=== PATIENT | female | born 1970 | race Caucasian/White ===

== ENCOUNTER → 2016-08-16 | Outpatient (CLI) | payer OTHER ==
[~2016-08-16] MED LIST: BENTYL10 MG PO; CALCIUM1 TAB.CHEW; EFFEXOR37.5 MG PO; FOLIC ACID; LEVBID PO; LORAZEPAM0.5 MG PO; MULTI-DAY VITAM1 TAB PO; PRENATAL1 TA1; VITAMIN B-1000 MCG/1 IJ
--- NOTE | ~2016-08-16 | MR104 ---
[facility] A Service of [facility] & [facility] RADIOLOGY TEXT RESULTS PATIENT: SADAF CORTEZ LOCATION: [facility] : 70 UNIT #: [id number] AGE: [address]: Bernabe Wong MD SEX: F ORDER DR: [id number] [facility] [address] [facility] [address] [place], [place] [address] [id number] O MR#: [id number] Acc #: [id number] NAME: SADAF CORTEZ : 1970 SEX: F STUDY DATE/TIME: 08/16/2016 18:26 UNIT: [facility] ROOM: STUDY DESCRIPTION: MR Knee Wo Contrast Rt Attending Physician: Bernabe Wong M.D. Ordering Physician: Bernabe Wong M.D. Primary Care Physician: Bernabe Wong M.D. MRI CENTER REPORT This report is preliminary unless electronic signature is present. EXAM MRI of the right knee without contrast HISTORY 46-year-old female complains of right medial knee pain x4 months. No known injury. Pain walking on stairs. Knee gives out. COMPARISON Right knee films 07/09/2016. FINDINGS Multiplanar, multiecho imaging was performed of the right knee utilizing a high field magnet and dedicated protocol. Examination demonstrates a small amount of subchondral edema along the medial tibial plateau corresponding to a 8 mm focus of moderate grade chondromalacia. There is increased T2 marrow signal within the distal femur most likely representing red marrow hyperplasia may be related to body habitus. There is a small knee effusion. The medial meniscus demonstrates diffuse myxoid degeneration but no defined tear. Lateral meniscus demonstrates a horizontal cleavage tear involving the posterior body segment posterior horn medial meniscus. Tear estimated over a cm in length. No displaced meniscal fragment. Lateral compartment articular cartilage appears intact. In the patellofemoral compartment, mild chondromalacia median ridge and lateral patellar facet. Anterior and posterior cruciate ligaments appear intact. The collateral ligaments and extensor mechanism unremarkable. Extraarticular soft tissues appear normal. IMPRESSION 1. Multifocal chondromalacia with moderate-grade chondromalacia involving the anterior weightbearing aspect medial tibial plateau with a small amount of subchondral edema as well as mild chondromalacia along the STS. [facility] A Service of [facility] & [facility] RADIOLOGY TEXT RESULTS PATIENT: SADAF CORTEZ LOCATION: [facility] : 70 UNIT #: [id number] AGE: [address]: Bernabe Wong MD SEX: F ORDER DR: median ridge and lateral patellar facet of the patella. 2. Myxoid degeneration of the lateral meniscus with a horizontal cleavage tear posterior body segment and posterior horn lateral meniscus. 3. Small knee effusion. Dictated by... Santino Vanegas M.D. THIS IS AN ELECTRONICALLY VERIFIED REPORT Santino Vanegas M.D. at 08/18/2016 1:58 PM ANITA/gabo TD: 08/17/2016 14:13 JOB #: [id number] MRI CENTER REPORT Page 1 of 1 COPY
== END | disposition home or self-care (01) ==
LOC: CMRI 17:22
DX: M25.561 Pain in right knee (principal); M94.261 Chondromalacia, right knee; M25.461 Effusion, right knee; M23.351 Other meniscus derangements, posterior horn of lateral meniscus, right knee
CPT/HCPCS: 73721